=== PATIENT | male | born 1950 | race Caucasian/White ===

== ENCOUNTER 2017-01-08 15:05 | Outpatient (CLI) | payer MEDICARE ==
--- NOTE | 2017-01-08 17:55 | RAD ---
LEFT KNEE FOUR VIEWS: History: Knee pain. FINDINGS: There are degenerative changes at the knee. The medial and lateral joint spaces are preserved. Mild spurring from the femoral condyles and posterior patella. Minimal spurring from the tibial condyles. No evidence of joint effusion. IMPRESSION: There are mild degenerative changes at the left knee. POS: [facility]
--- NOTE | 2017-01-08 19:18 | RAD ---
RIGHT SHOULDER THREE VIEWS: History: Pain, right shoulder. FINDINGS: Humeral head is normally positioned. AC joint is normally aligned. Minimal degenerative change at th e glenohumeral joint. Minimal spurring at the AC joint. IMPRESSION: Unremarkable right shoulder with very mild degenerative change noted. POS: [facility]
== END 2017-01-08 15:06 | disposition home or self-care (01) ==
LOC: NAV RAD 15:05
PROVIDERS: ATTEND Family Medicine
DX: M25.511 Pain in right shoulder (principal); M25.562 Pain in left knee

== ENCOUNTER 2022-05-13 07:58 | Emergency (ER) | payer MEDICARE ==
[2022-05-13] MEDS ORDERED: methylPREDNISolone Acetate 40 mg/ml Vial ONE (08:39)
== END 2022-05-13 08:45 | disposition home or self-care (01) ==
LOC: NAV ER/OP 07:58
DX: R22.0 Localized swelling, mass and lump, head (principal); R21 Rash and other nonspecific skin eruption; T41.3X5A Adverse effect of local anesthetics, initial encounter; E78.00 Pure hypercholesterolemia, unspecified; I10 Essential (primary) hypertension; Z87.891 Personal history of nicotine dependence; Z79.899 Other long term (current) drug therapy
CPT/HCPCS: 96372; 99283; J2920